=== PATIENT | female | born 1965 | race Caucasian/White ===

== ENCOUNTER → 2016-10-03 | Outpatient (CLI) | payer OTHER | LOC: FIMAGING 15:34 | DX: Z12.31 Encounter for screening mammogram for malignant neoplasm of breast (principal) | CPT/HCPCS: G0202 ==

== ENCOUNTER 2017-05-31 00:09 | Emergency (ER) | payer OTHER ==
--- NOTE | 2017-05-31 00:12 | EDPHY ---
H & P HPI/ROS: HPI CHIEF COMPLAINT: Cough, shortness of breath, wheezing HISTORY OF PRESENT ILLNESS: This patient very pleasant 51-year-old female, she presents emergency room stating that for the past 2-3 days she has had progressively worsening cough with shortness of breath, progressively getting worse over the past 3 days. She states this may have stemmed from when she stated tele ride with a cat exposure she is allergic to cats and penicillin. She denies any chest pain. She does have pain when she coughs. Did nonproductive bronchitic sounding cough. She also reports low-grade fever. 100.4 at home. Nonproductive cough. Shortness of breath got worse tonight with wheezing. She thinks maybe her asthma is acting up or she has a possible upper respiratory tract infection. Past Medical History: Asthma Past Surgical History: Multiple abdominal surgeries Social History: Denies daily use of drugs alcohol tobacco products. Family History: Noncontributory ROS REVIEW OF SYSTEMS: A comprehensive 10 point review of systems is otherwise negative aside from elements mentioned in the history of present illness. Exam Constitutional appears well nontoxic triage nursing summary reviewed, vital signs reviewed, awake/alert. Eyes normal conjunctivae and sclera, EOMI, PERRLA. HENT normal inspection, atraumatic, moist mucus membranes, no epistaxis, neck supple/ no meningismus, no raccoon eyes. Respiratory decreased air movement bilaterally, bronchitic sounding cough, faint wheezing at the bases Cardiovascular rate normal, regular rhythm, no murmur, no edema, distal pulses normal. Gastrointestinal soft, non-tender, no rebound, no guarding, normal bowel sounds, no distension, no pulsatile mass. Genitourinary no CVA tenderness. Musculoskeletal no midline vertebral tenderness, full range of motion, no calf swelling, no tenderness of extremities, no meningismus, good pulses, neurovascularly intact. Skin pink, warm, & dry, no rash, skin atraumatic. Neurologic awake, alert and oriented x 3, AAOx3, moves all 4 extremities equally, motor intact, sensory intact, CN II-XII intact, normal cerebellar, normal vision, normal speech. Psychiatric normal mood/affect. Heme/Lymph/Immune no lymphadenopathy. Differential Diagnosis: Includes but is not limited to in a particular order acute bronchitis, asthma, viral syndrome, reactive airway disease, pneumothorax , pneumonia. Medical Decision Making: Plan for this patient two view chest x-ray to rule out pneumonia, DuoNeb breathing treatment, prednisone 60 mg p.o., and re- evaluate. Check influenza. Re-evaluation: Patient is positive for influenza a. Will give a dose of Tamiflu here in emergency room. Additionally Tamiflu prescription for home. Additionally strict return precautions given to this patient as she does have underlying lung disease. She is not profoundly hypoxic. Will treat with prednisone, albuterol, azithromycin and Tamiflu. Return precautions discussed. Source: Patient - Medical/Surgical History Hx Asthma: Yes Hx Chronic Respiratory Disease: Yes Hx Diabetes: No Hx Cardiac Disease: No Hx Renal Disease: No Hx Cirrhosis: No Hx Alcoholism: No Hx HIV/AIDS: No Hx Splenectomy or Spleen Trauma: No Other PMH: asthma, anxiety, lung disease, liver resection, bowel resection, cholecystectomy, appendectomy, hysterectomy, bilat oophorectomy, hypothyroid - Social History Smoking Status: Never smoked Constitutional: Initial Vital Signs Temperature (C) 37.3 C 05/31/17 00:14 Heart Rate 98 05/31/17 00:14 Respiratory Rate 18 05/31/17 00:14 Blood Pressure 123/81 H 05/31/17 00:14 O2 Sat (%) 96 05/31/17 00:14 O2 Delivery Mode Room Air Allergies/Adverse Reactions: Penicillins Allergy (Severe, Verified 05/29/15 13:39) Rash iopamidol [From Isovue-M] Allergy (Intermediate, Verified 05/29/15 13:39) Vomiting Home Medications: Medication Instructions Recorded ALPRAZolam [Xanax] 0.5 mg PO HS 01/05/15 Albuterol [Proventil Inhaler] 1 - 2 puffs IH DAILY PRN 01/05/15 Bupropion HCl [Wellbutrin Xl] 300 mg PO DAILY 01/05/15 Fluticasone/Salmeter 250/50Mcg 1 puffs IH BID PRN 01/05/15 [Advair] Levothyroxine [Synthroid] 88 mcg PO DAILY06 01/05/15 Naproxen Sodium [Aleve] 220 mg PO DAILY PRN 01/05/15 AZITHROMYCIN [Z-PACK] 250 mg PO DAILY #6 tab 05/31/17 Albuterol [Proventil Inhaler HFA 1 - 2 puffs IH Q4H #1 mdi 05/31/17 (*)] Oseltamivir Phosphate [Tamiflu 75 75 mg PO BID #10 cap 05/31/17 mg (*)] predniSONE 60 mg PO DAILY #15 tab 05/31/17 Medical Decision Making - Data Points Laboratory Results: 05/31/17 01:05 Nasal Influenza A PCR Pending Nasal Influenza B PCR Pending Medications Given: Discontinued Medications Albuterol (Proventil Neb) 3 ml IH EDNOW ONE Stop: 05/31/17 00:45 Last Admin: 05/31/17 01:03 Dose: 3 ml Albuterol/Ipratropium (Duoneb) 3 ml IH EDNOW ONE Stop: 05/31/17 00:23 Last Admin: 05/31/17 00:27 Dose: 3 ml Prednisone (Prednisone) 60 mg PO EDNOW ONE Stop: 05/31/17 00:23 Last Admin: 05/31/17 00:25 Dose: 60 mg Departure - Departure Disposition: Home, Routine, Self-Care Clinical Impression: Bronchitis, Influenza Condition: Good Instructions: Acute Bronchitis (ED), Wheezing (ED), How Your Lungs Work (ED), Influenza (ED) Additional Instructions: 1. Return emergency room if develops any worsening symptoms includes worsening shortness of breath questions or concerns. Referrals: Patient,NotPresent [Unknown] - As per Instructions Prescriptions: Albuterol [Proventil Inhaler HFA (*)] 1 - 2 puffs IH Q4H #1 mdi AZITHROMYCIN [Z-PACK] 250 mg PO DAILY #6 tab Oseltamivir Phosphate [Tamiflu 75 mg (*)] 75 mg PO BID #10 cap predniSONE 60 mg PO DAILY #15 tab
[2017-05-31] MEDS ORDERED: IPRATROPIUM/ALBUTEROL 3 ML DEYVIAL IH ONE (00:22)
[2017-05-31] MEDS ORDERED: predniSONE 20 MG TAB PO ONE (00:22)
[2017-05-31] MEDS ORDERED: IPRATROPIUM/ALBUTEROL 3 ML DEYVIAL ONE (00:23)
[2017-05-31] MEDS ORDERED: ALBUTEROL 3 ML DEYVIAL IH ONE (00:44)
[2017-05-31] MEDS ORDERED: OSELTAMIVIR PHOSPHATE 75 MG CAP PO ONE (02:03)
[2017-05-31 02:17] VITALS: BP 103/68; PULSE 92; RESP 16; TEMP 99; O2SAT 94
== END 2017-05-31 02:16 | disposition home or self-care (01) ==
DX: J20.9 Acute bronchitis, unspecified (principal); J11.1 Influenza due to unidentified influenza virus with other respiratory manifestations; J45.909 Unspecified asthma, uncomplicated
CPT/HCPCS: J7512; J7613

== ENCOUNTER → 2017-11-03 | Outpatient (CLI) | payer OTHER | LOC: FIMAGING 10:30 | PROVIDERS: ATTEND Obstetrics & Gynecology | DX: Z12.31 Encounter for screening mammogram for malignant neoplasm of breast (principal); Z13.820 Encounter for screening for osteoporosis; Z81.0 Family history of intellectual disabilities ==

== ENCOUNTER → 2018-08-25 | Outpatient (CLI) | payer OTHER | LOC: FIMAGING 07:10 | PROVIDERS: ATTEND Radiology Diagnostic Radiology | DX: I83.813 Varicose veins of bilateral lower extremities with pain (principal) ==

== ENCOUNTER 2018-10-01 11:40 | Day surgery (SDC) | payer OTHER ==
[2018-10-01] MEDS ORDERED: NS 1,000 ML IV ONE (12:05)
[2018-10-01] MEDS ORDERED: NALOXONE HCL 0.4 MG/ML INJ IVP PRN (12:05)
[2018-10-01] MEDS ORDERED: ONDANSETRON 4 MG/2 ML VIAL IVP ONE (12:05)
[2018-10-01] MEDS ORDERED: fentaNYL 100 MCG/2 ML INJ IVP PRN (12:05)
[2018-10-01] MEDS ORDERED: MIDAZOLAM 2 MG/2 ML VIAL IVP PRN (12:05)
[2018-10-01] MEDS ORDERED: FLUMAZENIL 0.5 MG/5 ML MDV IVP PRN (12:05)
[2018-10-01] MEDS ORDERED: SODIUM TETRADECYL SULFATE 3% 2 ML VIAL IV ONE (13:06)
[2018-10-01] MEDS ORDERED: NA BICARBONATE 50 MEQ/50 ML VIAL ONE (13:06)
[2018-10-01] MEDS ORDERED: LIDO/EPI 1% **for epidural** 30 ML SDV ONE (13:07)
--- NOTE | 2018-10-01 13:23 | PDGENHP ---
History & Physical Chief Complaint: BILATERAL VARICOSE VEINS History of Present Illness: SMALL VEIN ON RT POP FOSSA. PAINFUL VEINS ON LT Pertinent Past, Social, Family History: OOPHRECTOMY, BOWEL PERFORATION, APPENDECTOMY. PARTIAL HEPATECTOMY. Relevant Physical Exam: VEINS MAPPED OUT. Cardiorespiratory Assessment: RRR, CTA
--- NOTE | 2018-10-01 13:23 | PDPROPOC ---
Sedation Plan of Care Sedation Plan of Care: vital signs stable, mental status noted, patient educated of risks, benefits, alternatives, patient can tolerate sedation ASA Classification: ASA 2 Planned drugs: fentanyl, midazolam Mallampati Score: Class 3 Mallampati Reference Image: Patient passed 3-3-2 rule?: Yes
[2018-10-01] MEDS ORDERED: ONDANSETRON 4 MG/2 ML VIAL IVP PRN (14:51)
[2018-10-01] MEDS ORDERED: IBUPROFEN 200 MG TAB PO ONE (14:51)
[2018-10-01] MEDS ORDERED: ONDANSETRON DISINTEGRATING 4 MG TAB PO PRN (14:51)
--- NOTE | 2018-10-01 14:52 | PDRADPN ---
Radiology Procedure Note Date of Procedure: 10/01/18 Radiologist: Anne Marie Garduno Anesthesia: IV Sedation Pre-op Diagnosis: bilateral varicose veins Post-op Diagnosis: same Indication: pain and swelling Procedure: laser ablation, schlerotherapy Inf/Abcess present in the surg proc area at time of surgery?: No
[2018-10-01] MEDS ORDERED: NS 1,000 ML IV SCH (15:00)
[2018-10-01] MEDS: HYDROCODONE/APAP 5/325 TAB PO PRN ×2 (15:16→15:21)
[2018-10-01 15:26] VITALS: BP 107/64
== END 2018-10-01 16:04 | disposition home or self-care (01) ==
LOC: FIMAGING 11:40
PROVIDERS: ATTEND Radiology Diagnostic Radiology
DX: I83.813 Varicose veins of bilateral lower extremities with pain (principal); I83.893 Varicose veins of bilateral lower extremities with other complications
CPT/HCPCS: J2250; J2310; J2405; J3010

== ENCOUNTER → 2018-10-16 | Outpatient (CLI) | payer OTHER | LOC: FIMAGING 12:27 ==

== ENCOUNTER → 2018-11-17 | Day surgery (SDC) | payer OTHER | LOC: FIMAGING 13:35 ==

== ENCOUNTER → 2018-11-21 | Outpatient (CLI) | payer OTHER | LOC: FIMAGING 08:28 ==